=== PATIENT | female | born 1970 | race Two or more races ===

== ENCOUNTER 2021-12-12 15:29 | Inpatient (IN) | payer MEDICAID ==
[~2021-12-12] VITALS: Ht 160 cm; Wt 84.8 kg
[2021-12-12 16:18] LABS: Basophils # (auto) 0 10 ^3/uL (0-0.2); Basophils % (auto) 0.5 % (0.0-2.0); Eosinophils # (auto) 0.2 10 ^3/uL (0-0.8); Eosinophils % (auto) 2.5 % (0.0-7.0); Hematocrit 38.3 % (36.0-46.0); Hemoglobin 12.7 g/dL (12.2-16.2); Lymphocytes # (auto) 2.8 10 ^3/uL (0.4-5.4); Lymphocytes % (auto) 36.5 % (10.0-50.0); Mean Corpuscular Hemoglobin 30.5 pg (28.0-32.0); Mean Corpuscular Hgb Conc. 33.2 g/dL (32.0-36.0); Mean Corpuscular Volume 91.9 fL (80.0-100.0); Monocytes # (auto) 0.4 10 ^3/uL (0-1.3); Monocytes % (auto) 5.8 % (0.0-12.0); Neutrophils # (auto) 4.1 10 ^3/uL (1.6-8.6); Neutrophils % (auto) 54.7 % (37.0-80.0); Nucleated Red Blood Cells % 0.1 %; Red Blood Cells 4.16 10^6/uL (4.0-5.20); Red Cell Distribution Width 13.2 % (11.8-14.3); White Blood Cell 7.6 10^3/uL (4.4-10.8)
[2021-12-12 16:39] LABS: Albumin 3.4 g/dL (3.4-5.0); BUN/Creatinine Ratio 25.6; Calcium 8.4 mg/dL (8.5-10.1); Potassium 3.3 mmol/L (3.5-5.1)
[2021-12-12 16:42] LABS: Partial Thromboplastin Time 28.9 sec (23.6-33.0)
[2021-12-12] MEDS ORDERED: ONDANSETRON HCL 4 MG/2 ML VIAL IV ONE (16:45)
[2021-12-12] MEDS ORDERED: PANTOPRAZOLE 40mg/50ML NS AE 50 ML IV ONE (16:45)
[2021-12-12] MEDS ORDERED: SODIUM CHLORIDE 0.9% 1,000 ML IVB ONE (16:45)
[2021-12-12] MEDS ORDERED: FAMOTIDINE (10MG/ML) 2ML VL IV ONE (16:45)
[2021-12-12 16:46] LABS: Bilirubin, Total 0.6 mg/dL (0.2-1.0); Total Protein 6.6 g/dL (6.4-8.2)
[2021-12-12 17:53] LABS: Basophils # (auto) 0.1 10 ^3/uL (0-0.2); Basophils % (auto) 0.6 % (0.0-2.0); Eosinophils # (auto) 0.2 10 ^3/uL (0-0.8); Eosinophils % (auto) 2.6 % (0.0-7.0); Hematocrit 39.7 % (36.0-46.0); Hemoglobin 12.9 g/dL (12.2-16.2); Lymphocytes # (auto) 2.9 10 ^3/uL (0.4-5.4); Lymphocytes % (auto) 32.5 % (10.0-50.0); Mean Corpuscular Hgb Conc. 32.4 g/dL (32.0-36.0); Mean Corpuscular Volume 92.7 fL (80.0-100.0); Monocytes # (auto) 0.6 10 ^3/uL (0-1.3); Monocytes % (auto) 6.3 % (0.0-12.0); Neutrophils # (auto) 5.1 10 ^3/uL (1.6-8.6); Red Blood Cells 4.29 10^6/uL (4.0-5.20); Red Cell Distribution Width 12.9 % (11.8-14.3); White Blood Cell 8.9 10^3/uL (4.4-10.8)
[2021-12-12] MEDS ORDERED: MORPHINE SULFATE INJ 2 MG/ml SYRG IV ONE (20:30)
[2021-12-12 21:00] LABS: Urine Bacteria FEW /hpf (None Seen); Urine Blood Negative /uL (Negative); Urine Mucus FEW (None Seen); Urine Specific Gravity 1.026 (1.001-1.035); Urine WBC 26 /hpf (0 - 5)
[2021-12-12] MEDS ORDERED: IOHEXOL 300 MG/ML 100ML BOTTLE IJ ONE (22:10)
[2021-12-12] MEDS ORDERED: MORPHINE SULFATE INJ 2 MG/ml SYRG IV PRN (23:15)
[2021-12-12] MEDS ORDERED: ONDANSETRON HCL 4 MG/2 ML VIAL IV PRN (23:15)
[2021-12-12] MEDS: SODIUM CHLORIDE 0.9% 1,000 ML IV SCH (23:15)
[2021-12-13 01:03] LABS: Basophils # (auto) 0 10 ^3/uL (0-0.2); Basophils % (auto) 0.4 % (0.0-2.0); Eosinophils # (auto) 0.2 10 ^3/uL (0-0.8); Hematocrit 35.8 % (36.0-46.0); Lymphocytes # (auto) 3.4 10 ^3/uL (0.4-5.4); Lymphocytes % (auto) 34.3 % (10.0-50.0); Mean Corpuscular Hemoglobin 31.2 pg (28.0-32.0); Mean Corpuscular Hgb Conc. 33.7 g/dL (32.0-36.0); Mean Corpuscular Volume 92.8 fL (80.0-100.0); Monocytes # (auto) 0.6 10 ^3/uL (0-1.3); Monocytes % (auto) 5.7 % (0.0-12.0); Neutrophils # (auto) 5.8 10 ^3/uL (1.6-8.6); Neutrophils % (auto) 57.6 % (37.0-80.0); Red Blood Cells 3.86 10^6/uL (4.0-5.20); Red Cell Distribution Width 13.1 % (11.8-14.3); White Blood Cell 10.1 10^3/uL (4.4-10.8)
[2021-12-13] MEDS: PANTOPRAZOLE 40 MG/10 ML VIAL INJ IV SCH ×2 (01:51→09:27)
[2021-12-13] MEDS ORDERED: DEXTROSE (50%) 50ML SYRG IV PRN (02:00)
[2021-12-13 06:56] LABS: Basophils # (auto) 0 10 ^3/uL (0-0.2); Basophils % (auto) 0.5 % (0.0-2.0); Eosinophils # (auto) 0.2 10 ^3/uL (0-0.8); Eosinophils % (auto) 3.2 % (0.0-7.0); Hematocrit 35.7 % (36.0-46.0); Hemoglobin 11.8 g/dL (12.2-16.2); Lymphocytes # (auto) 2.7 10 ^3/uL (0.4-5.4); Lymphocytes % (auto) 36.9 % (10.0-50.0); Mean Corpuscular Hemoglobin 30.4 pg (28.0-32.0); Mean Corpuscular Hgb Conc. 33.2 g/dL (32.0-36.0); Mean Corpuscular Volume 91.8 fL (80.0-100.0); Monocytes # (auto) 0.5 10 ^3/uL (0-1.3); Monocytes % (auto) 7.4 % (0.0-12.0); Neutrophils # (auto) 3.8 10 ^3/uL (1.6-8.6); Red Blood Cells 3.89 10^6/uL (4.0-5.20); White Blood Cell 7.3 10^3/uL (4.4-10.8)
[2021-12-13 07:12] LABS: BUN/Creatinine Ratio 31.3; Calcium 8.1 mg/dL (8.5-10.1)
[2021-12-13] MEDS: SODIUM CHLORIDE 0.9% 1,000 ML IV SCH ×2 (07:15→15:15)
[2021-12-13] MEDS: ACCU-CHEK COMFORT CURVE STRIP VI SCH ×2 (07:40→14:35)
[2021-12-13] MEDS: InsuLIN REG 1unit/0.01ml Soln (100units/ml) SC SCH ×2 (07:48→11:30)
[2021-12-13] MEDS ORDERED: LIDOCAINE VISCOUS 2% 15ML UD ONE (08:12)
[2021-12-13] MEDS ORDERED: diphenhdrAMINE HCL 50 MG/1 ML VL ONE (08:13)
[2021-12-13 09:19] VITALS: BP 117/75
[2021-12-13] MEDS: fentaNYL CITRATE 100 MCG/2 ML VL ONE ×2 (10:47→10:50)
[2021-12-13] MEDS: MIDAZOLAM HCL 5 MG/ML-1ML VIAL ONE ×2 (10:47→10:50)
[2021-12-13] MEDS ORDERED: FLUT0.05 NAS (11:11)
[2021-12-13] MEDS ORDERED: ENAL2.5T7 PO (11:11)
[2021-12-13] MEDS ORDERED: HYDR2.5L TOP (11:11)
[2021-12-13] MEDS ORDERED: BACL10TA PO (11:15)
[2021-12-13] MEDS ORDERED: TIZA4CAP PO (11:15)
[2021-12-13] MEDS ORDERED: LISI-706 PO (11:15)
[2021-12-13] MEDS ORDERED: SUCRALFATE 1 GM/10 ML ORAL SUSP PO SCH (11:30)
[2021-12-13 11:57] LABS: Basophils # (auto) 0 10 ^3/uL (0-0.2); Basophils % (auto) 0.6 % (0.0-2.0); Eosinophils # (auto) 0.2 10 ^3/uL (0-0.8); Eosinophils % (auto) 3.2 % (0.0-7.0); Hematocrit 36.3 % (36.0-46.0); Lymphocytes # (auto) 2.4 10 ^3/uL (0.4-5.4); Lymphocytes % (auto) 36.6 % (10.0-50.0); Mean Corpuscular Hemoglobin 30.9 pg (28.0-32.0); Mean Corpuscular Hgb Conc. 33.2 g/dL (32.0-36.0); Mean Corpuscular Volume 93.2 fL (80.0-100.0); Monocytes # (auto) 0.5 10 ^3/uL (0-1.3); Monocytes % (auto) 7.2 % (0.0-12.0); Neutrophils # (auto) 3.4 10 ^3/uL (1.6-8.6); Neutrophils % (auto) 52.4 % (37.0-80.0); Red Blood Cells 3.89 10^6/uL (4.0-5.20); White Blood Cell 6.5 10^3/uL (4.4-10.8)
[2021-12-13 12:33] VITALS: BP 130/87
[2021-12-13] MEDS ORDERED: HYDR50TA32 PO (13:53)
[2021-12-13] MEDS ORDERED: MIRT-66 OR (13:53)
[2021-12-13] MEDS ORDERED: NAPR500T31 PO (13:53)
[2021-12-13] MEDS ORDERED: DIPH25CA29 PO (14:11)
[2021-12-13] MEDS ORDERED: CHOL500021 OR (14:11)
[2021-12-13] MEDS ORDERED: AMOX500T3 PO (14:11)
[2021-12-13] MEDS ORDERED: METF-370 PO (14:11)
[2021-12-13] MEDS ORDERED: LORA1TAB23 PO (14:11)
[2021-12-13] MEDS ORDERED: NIC21P TOP (14:11)
[2021-12-13] MEDS ORDERED: CETI10TA2 PO (14:11)
[2021-12-13] MEDS ORDERED: FLUO-125 PO (14:11)
[2021-12-13] MEDS ORDERED: HYDR-3682 PO (14:11)
[2021-12-13] MEDS ORDERED: ATOR20TA50 PO (14:11)
[2021-12-13] MEDS ORDERED: DULO20CA PO (14:11)
[2021-12-13] MEDS ORDERED: GABA250S2 PO (14:11)
[2021-12-13] MEDS ORDERED: SUVO1TAB2 PO (14:11)
[2021-12-13] MEDS ORDERED: TRAM50TA2 PO (14:11)
[2021-12-13] MEDS ORDERED: FAMO-12 PO (14:11)
[2021-12-13] MEDS ORDERED: CEL100T PO (14:11)
[2021-12-13] MEDS ORDERED: QUET1TAB11 PO (14:11)
[2021-12-13 15:03] VITALS: BP 130/87
[2021-12-13] MEDS ORDERED: PANTOPRAZOLE 40 MG TAB PO SCH (22:00)
== END 2021-12-13 15:40 | disposition home or self-care (01) | DRG 241 ==
LOC: ER 15:29 → TELE 23:02 → TELE-CENTR 12-13 08:23
PROVIDERS: ADMIT Nurse Practitioner Family; ATTEND Nurse Practitioner Family
PROC: 0DB68ZX Excision of Stomach, Via Natural or Artificial Opening Endoscopic, Diagnostic (ICD-10-PCS; 2021-12-13)
PROC: 0DB58ZX Excision of Esophagus, Via Natural or Artificial Opening Endoscopic, Diagnostic (ICD-10-PCS; principal; 2021-12-13 10:42)
DX: K29.71 Gastritis, unspecified, with bleeding (principal); I95.9 Hypotension, unspecified; E11.9 Type 2 diabetes mellitus without complications; K22.89 Other specified disease of esophagus; F32.A Depression, unspecified; F41.9 Anxiety disorder, unspecified; I10 Essential (primary) hypertension; J98.11 Atelectasis; K21.9 Gastro-esophageal reflux disease without esophagitis; Z20.822 Contact with and (suspected) exposure to COVID-19; Z87.891 Personal history of nicotine dependence; Z83.2 Family history of diseases of the blood and blood-forming organs and certain disorders involving the immune mechanism; Z79.84 Long term (current) use of oral hypoglycemic drugs
CPT/HCPCS: 36415; 43239; 71045; 74177; 80048; 80053; 81001; 82962; 83690; 84702; 85025; 85610; 85730; 86850; 86900; 86901; 93005; 96361; 96374; 96375; C9113; G0378; J2250; J2405; J3490

== ENCOUNTER 2024-01-15 14:42 | Emergency (ER) | payer MEDICAID ==
[~2024-01-15] VITALS: Ht 160 cm; Wt 71.0 kg
[~2024-01-15 14:42] MED LIST: ATOR20TA50 PO; BACL10TA PO; CEL100T PO; CETI10TA2 PO; CHOL500021 OR; DIPH-753 PO; DULO20CA PO; FAMO-12 PO; FLUO-125 PO; FLUT0.05 NAS; GABA250S7 PO; LISI-706 PO; LORA-1123 PO; METF-370 PO; MIRT-94 OR
[2024-01-15 15:08] VITALS: BP 160/103; RESP 16; O2SAT 100
[2024-01-15] MEDS: cloNIDine HCL 0.1 MG TAB PO ONE (15:15)
[2024-01-15] MEDS: ONDANSETRON HCL 4 MG/2 ML VIAL IM ONE (15:15)
[2024-01-15] MEDS: DICYCLOMINE HCL (10MG/ML) 2 ML AMPULE IM ONE (15:15)
[2024-01-15 15:30] VITALS: PULSE 80
[2024-01-15 15:39] LABS: Urine Bacteria None Seen /hpf (None Seen)
[2024-01-15 15:46] LABS: Basophils # (auto) 0 10 ^3/uL (0-0.2); Basophils % (auto) 0.6 % (0.0-2.0); Eosinophils # (auto) 0.2 10 ^3/uL (0-0.8); Eosinophils % (auto) 2.5 % (0.0-7.0); Hematocrit 42.3 % (36.0-46.0); Hemoglobin 14.4 g/dL (12.2-16.2); Lymphocytes # (auto) 2.8 10 ^3/uL (0.4-5.4); Lymphocytes % (auto) 32.2 % (10.0-50.0); Mean Corpuscular Hemoglobin 32.6 pg (28.0-32.0); Monocytes # (auto) 0.5 10 ^3/uL (0-1.3); Monocytes % (auto) 6.2 % (0.0-12.0); Neutrophils # (auto) 5.1 10 ^3/uL (1.6-8.6); Neutrophils % (auto) 58.5 % (37.0-80.0); Red Cell Distribution Width 13.1 % (11.8-14.3); White Blood Cell 8.7 10^3/uL (4.4-10.8)
[2024-01-15 15:52] LABS: Urine Blood Negative /uL (Negative); Urine Protein, UAD Negative (Negative); Urine Specific Gravity 1.014 (1.001-1.035); Urine Urobilinogen Normal (Negative); Urine WBC 19 /hpf (0 - 5)
[2024-01-15 16:00] LABS: Urine Clarity CLOUDY (Clear); Urine Color Yellow (Yellow)
[2024-01-15 16:13] LABS: Chloride 108 mmol/L (98-107); Potassium 3.7 mmol/L (3.5-5.1); Sodium 143 mmol/L (136-145)
[2024-01-15 16:14] LABS: Anion Gap 3 (5-15); Calcium 9.8 mg/dL (8.7-10.4); Carbon Dioxide 32 mmol/L (20-30)
[2024-01-15 16:19] LABS: BUN/Creatinine Ratio 25.8 (10.0-20.0); Blood Urea Nitrogen 16 mg/dL (9-23); Glucose 101 mg/dL (74-106); Lipase 32 U/L (12-53)
[2024-01-15] MEDS ORDERED: NITROFURANTOIN 100 mg CAP PO ONE (17:15)
[2024-01-15] MEDS: METOCLOPRAMIDE HCL 5MG/ml INJ 2ml VIAL IM ONE (17:23)
== END 2024-01-15 20:32 | disposition left against medical advice (07) ==
LOC: ER 14:42
DX: N39.0 Urinary tract infection, site not specified (principal); R10.84 Generalized abdominal pain; R11.2 Nausea with vomiting, unspecified; I10 Essential (primary) hypertension; E11.9 Type 2 diabetes mellitus without complications; F41.9 Anxiety disorder, unspecified; F32.9 Major depressive disorder, single episode, unspecified; Z88.5 Allergy status to narcotic agent; Z91.09 Other allergy status, other than to drugs and biological substances; Z79.899 Other long term (current) drug therapy
CPT/HCPCS: 36415; 80048; 81001; 83690; 85025; 93005; 96372; 99284; J0500; J2405; J2765